=== PATIENT | male | born 1955 | race African-American/Black ===

== ENCOUNTER 2017-06-18 19:22 | Emergency (ER) | payer OTHER, MEDICARE ==
[2017-06-18 20:02] LABS: #Basophils 0.1 thou/uL (0.0-0.2); #Monocytes 0.5 thou/uL (0.11-0.59); %Eosinophils 0.7 % (0.0-10.0); %Lymphocytes 18.2 % (21.0-51.0); %Monocytes 9.6 % (0.0-10.0); %Neutrophils 70.5 % (42.0-75.0); Hemoglobin 12.9 g/dL (14.0-18.0); Mean Corpuscular Hemoglobin 30.4 pg (27.0-31.0); Mean Platelet Volume 7.2 fL (7.4-10.4); Platelet Count 218 thou/uL (130-400); RBC Distribution Width 19.6 % (11.5-14.5); Red Blood Cell (RBC) Count 4.23 mill/uL (4.70-6.10); White Blood Cell (WBC) Count 5.6 thou/uL (4.8-10.8)
[2017-06-18 20:08] LABS: INR-International Normal Ratio 2.3; PTT 40.4 SEC (22.9-36.1); Prothrombin Time 26.3 SEC (12.0-14.7)
--- NOTE | 2017-06-18 20:15 | RAD ---
AP VIEW OF THE CHEST: 06/18/17 INDICATION: Weakness. COMPARISON: Prior exam dated 07/05/16. FINDINGS: Stable cardiomegaly. There has been interval revision of the left sided AICD with a new lead project ing in the region of the right atrium. The left costophrenic is excluded. Visualized lungs are clear. Chronic osseous changes are similar to the comparison study. IMPRESSION: 1. No acute cardiopulmonary abnormality. There is stable cardiomegaly. 2. Interval revision of the AICD leads when compared to prior dated 07/05/16. POS: [facility]
[2017-06-18 20:22] LABS: CKMB 2.1 ng/mL (0-6.6); Troponin I 0.031 ng/mL (< 0.028)
[2017-06-18 20:27] LABS: Bilirubin Negative (Negative); Blood, Urine Negative (Negative); Clarity CLEAR (Clear); Glucose, Urine (Dipstick) Negative (Negative); Leukocyte Negative (Negative); Nitrite Negative (Negative); Protein, Urine (Dipstick) 30 mg/dL (Neg-Trace); Specific Gravity, Urine 1.015 (1.002-1.036); Urobilinogen > or = 8.0 mg/dL (0.2-1.0)
[2017-06-18 20:30] LABS: Bacteria/HPF None Seen HPF (None Seen); Squamous Epithelial 0-3 HPF (0-3); WBC/HPF 0-3 HPF (0-3)
[2017-06-18 20:31] LABS: Pathc Cast-AUWi Flag 4.21 (0-2.49)
[2017-06-18 20:45] LABS: RBC/HPF 0-3 HPF (0-3)
[2017-06-18 20:46] LABS: Hyaline Casts/LPF 0-3 HYALINE CAST LPF (0-3 Hyaline)
[2017-06-18] MEDS ORDERED: Bumetanide 1 MG/4 ML VIAL IVP SCH (21:30)
== END 2017-06-18 21:50 | disposition home or self-care (01) ==
LOC: ERS 19:22
DX: R11.0 Nausea (principal); I95.9 Hypotension, unspecified; I50.9 Heart failure, unspecified; F32.9 Major depressive disorder, single episode, unspecified
CPT/HCPCS: 36415; 71045; 81003; 81015; 82553; 83880; 84484; 85025; 85610; 85730; 93005; 96374; J3490